=== PATIENT | female | born 1960 | race Caucasian/White ===

== ENCOUNTER 2019-03-23 10:20 | Emergency (ER) | payer OTHER ==
[~2019-03-23] VITALS: Ht 154.9 cm; Wt 52.8 kg
[2019-03-23 10:29] VITALS: BP 131/74
--- NOTE | 2019-03-23 10:40 | NUR ---
PT TO ER BED 3
--- NOTE | 2019-03-23 10:44 | NUR ---
pt states noted her dorsal right hand with swelling and redness x 2 days ago denies any obvious injury, no break in skin noted---+2 radial pulse <3 sec cap refill able to make fist
[2019-03-23 12:00] VITALS: BP_DIAS 70
--- NOTE | 2019-03-23 13:41 | NUR ---
DR. TRAN BEDSIDE TO EXAM PT.
[2019-03-23] MEDS ORDERED: KETOROLAC 60 MG/2 ML VIAL IM ONE (13:45)
--- NOTE | 2019-03-23 13:57 | NUR ---
MEDICATED PT WITH TORADOL IM PER MD ORDER.
--- NOTE | 2019-03-23 14:41 | NUR ---
XRAY RESULT WAS BACK. DR. TRAN WENT TO BEDSIDE TO TALK WITH PT THEN DECIDED TO DC PT HOME. Patient discharged with v/s stable. Written and verbal after care instructions given and explained. Patient verbalized understanding. Ambulatory with to home. All questions addressed prior to discharge. Advised to follow up with PMD.
[2019-03-23 14:42] VITALS: BP_SYST 124
== END 2019-03-23 14:43 | disposition home or self-care (01) ==
LOC: MED 10:20
DX: M79.641 Pain in right hand (principal); R22.31 Localized swelling, mass and lump, right upper limb; Z90.710 Acquired absence of both cervix and uterus; Z98.890 Other specified postprocedural states; Z88.6 Allergy status to analgesic agent; Z91.040 Latex allergy status; Z88.8 Allergy status to other drugs, medicaments and biological substances
CPT/HCPCS: 73130; 96372; 99283; J1885; Q0092